=== PATIENT | male | born 1990 | race Caucasian/White ===

== ENCOUNTER 2017-10-16 10:09 | Emergency (ER) | payer SELFPAY ==
[~2017-10-16] VITALS: Ht 185.4 cm; Wt 93.2 kg
[2017-10-16 10:45] LABS: EOS # 0.2 (0.04-0.40); EOS % 1.5 % (0.0-4.0); HEMATOCRIT 47.2 % (42.0-52.0); HEMOGLOBIN 15.9 g/dL (13.5-18.0); LYMPH# 1.6 (1.50-4.00); MEAN CELL VOLUME 85 fl (78-100); MEAN CORPUSCULAR HEMOGLOBIN 29 pg (27-31); MEAN CORPUSCULAR HGB CONC 34 g/dL (33-37); MEAN PLATELET VOLUME 8.2 fl (7.4-10.4); MONO # 1.1 (0.20-0.80); NEU # 8.7 (1.40-6.50); PLATELET COUNT 257 K/mm3 (130-400); RED BLOOD COUNT 5.58 M/mm3 (4.20-5.60); RED CELL DISTRIBUTION WIDTH 12.5 % (11.5-14.5); WHITE BLOOD COUNT 11.6 K/mm3 (4.8-10.8)
[2017-10-16 10:53] LABS: ALBUMIN 4.9 g/dL (3.5-5.0); CALCIUM 9.6 mg/dL (8.4-10.2); POTASSIUM 4.5 mmol/L (3.6-5.0); TOTAL BILIRUBIN 0.6 mg/dL (0.2-1.3); TOTAL PROTEIN 8.9 g/dL (6.3-8.2)
[2017-10-16 12:50] VITALS: BP 118/67
== END 2017-10-16 12:20 | disposition short-term general hospital (02) ==
LOC: ED 10:09
PROVIDERS: Physician Assistant
DX: K35.80 Unspecified acute appendicitis (principal); R10.31 Right lower quadrant pain; Z87.11 Personal history of peptic ulcer disease
CPT/HCPCS: J1885; J3010; Q9967

== ENCOUNTER 2021-01-15 19:24 | Emergency (ER) | payer OTHER ==
[~2021-01-15 19:24] MED LIST: PREDNISONE20 M1 PO
[2021-01-15 21:10] VITALS: BP 146/100
== END 2021-01-15 21:11 | disposition home or self-care (01) ==
LOC: ED 19:24
DX: S61.214A Laceration without foreign body of right ring finger without damage to nail, initial encounter (principal); W26.9XXA Contact with unspecified sharp object(s), initial encounter; Y92.009 Unspecified place in unspecified non-institutional (private) residence as the place of occurrence of the external cause

== ENCOUNTER → 2021-12-09 | Outpatient (CLI) | payer OTHER | LOC: RAD 10:58 | DX: S83.241A Other tear of medial meniscus, current injury, right knee, initial encounter (principal); S83.004A Unspecified dislocation of right patella, initial encounter; S72.8X1A Other fracture of right femur, initial encounter for closed fracture; X58.XXXA Exposure to other specified factors, initial encounter ==